=== PATIENT | male | born 1970 | race Two or more races ===

== ENCOUNTER 2019-11-04 08:16 | Emergency (ER) | payer OTHER ==
[~2019-11-04] VITALS: Ht 162.6 cm; Wt 72.6 kg
[2019-11-04 08:23] VITALS: Ht 162.6 cm; Wt 72.6 kg
[2019-11-04 10:17] VITALS: BP 150/98
== END 2019-11-04 10:17 | disposition home or self-care (01) ==
LOC: ED 08:16
DX: R42 Dizziness and giddiness (principal); R53.1 Weakness; F41.9 Anxiety disorder, unspecified; Z88.2 Allergy status to sulfonamides
CPT/HCPCS: Q0092